=== PATIENT | male | born 1970 | race Caucasian/White ===

== ENCOUNTER 2020-09-28 19:44 | Emergency (ER) | payer OTHER ==
[~2020-09-28] VITALS: Ht 175.3 cm; Wt 90.9 kg
[~2020-09-28 19:44] MED LIST: NOCURR
[2020-09-28 20:20] LABS: AMPHET/METH SCREEN,URINE POSITIVE (NEGATIVE); BARBITURATE SCREEN, URINE NEGATIVE (NEGATIVE); BENZODIAZEPINES SCREEN,URINE NEGATIVE (NEGATIVE); CANNABINOID SCREEN,URINE NEGATIVE (NEGATIVE); COCAINE SCREEN,URINE NEGATIVE (NEGATIVE); METHADONE SCREEN, URINE NEGATIVE (NEGATIVE); OPIATE SCREEN,URINE NEGATIVE (NEGATIVE); PHENCYCLIDINE SCREEN,URINE NEGATIVE (NEGATIVE)
[2020-09-28 23:57] VITALS: BP 122/62
== END 2020-09-29 06:49 | disposition home or self-care (01) ==
LOC: EMS 19:48
DX: F15.90 Other stimulant use, unspecified, uncomplicated (principal); F10.920 Alcohol use, unspecified with intoxication, uncomplicated; F17.210 Nicotine dependence, cigarettes, uncomplicated; F14.90 Cocaine use, unspecified, uncomplicated; F12.90 Cannabis use, unspecified, uncomplicated
CPT/HCPCS: 99285

== ENCOUNTER 2022-04-18 22:44 | Emergency (ER) | payer OTHER ==
[~2022-04-18] VITALS: Ht 172.7 cm; Wt 90.9 kg
[2022-04-18 22:44] VITALS: BP 123/75
[2022-04-18] MEDS ORDERED: PERTUSS(ACELL),DIPH,TET VAC/PF 0.5 ML SYRINGE IM. ONE (23:00)
[2022-04-18] MEDS ORDERED: LIDOCAINE 1% 10 ML VIAL ID ONE (23:00)
== END 2022-04-19 00:32 | disposition home or self-care (01) ==
LOC: EMS 22:47
DX: S61.211A Laceration without foreign body of left index finger without damage to nail, initial encounter (principal); F17.210 Nicotine dependence, cigarettes, uncomplicated; F12.90 Cannabis use, unspecified, uncomplicated; F14.90 Cocaine use, unspecified, uncomplicated; W26.0XXA Contact with knife, initial encounter; Y93.89 Activity, other specified; Y92.89 Other specified places as the place of occurrence of the external cause; Y99.8 Other external cause status; Z88.0 Allergy status to penicillin
CPT/HCPCS: 99283; 73140; 90715; 90471; 12001; J3490

== ENCOUNTER 2025-06-19 14:21 | Emergency (ER) | payer OTHER ==
[~2025-06-19] VITALS: Ht 167.6 cm; Wt 82.0 kg
[2025-06-19 14:51] VITALS: TEMP 100.6
[2025-06-19 17:00] VITALS: BP 159/86; PULSE 94; RESP 17; O2SAT 99
[2025-06-19] MEDS: ACETAMINOPHEN 500 MG TABLET PO ONE (17:13)
[2025-06-19] MEDS: IBUPROFEN 600 MG TABLET PO ONE (17:13)
[2025-06-19] MEDS ORDERED: IBUP-1492 PO (17:39)
[2025-06-19] MEDS ORDERED: ACET-3385 PO (17:39)
== END 2025-06-19 18:22 | disposition home or self-care (01) ==
LOC: EMS 14:21
DX: S83.92XA Sprain of unspecified site of left knee, initial encounter (principal); S43.101A Unspecified dislocation of right acromioclavicular joint, initial encounter; F17.210 Nicotine dependence, cigarettes, uncomplicated; F12.90 Cannabis use, unspecified, uncomplicated; Z88.0 Allergy status to penicillin; V89.2XXA Person injured in unspecified motor-vehicle accident, traffic, initial encounter; Y93.89 Activity, other specified; Y92.410 Unspecified street and highway as the place of occurrence of the external cause; Y99.8 Other external cause status
CPT/HCPCS: 99284; 73030-TC; 73562-TC; Z7502; Z7610